=== PATIENT | male | born 1980 | race African-American/Black ===

== ENCOUNTER 2021-02-10 09:01 | Emergency (ER) | payer SELFPAY ==
[2021-02-10 10:22] LABS: Absolute Lymphocytes (CBC) 1.3 K/uL (0.7-4.9); Basophils % 0.5 % (0-1.3); Hematocrit 44.7 % (39.6-49.0); Lymphocytes % 8.5 % (15.3-44.8); MPV 9.1 fL (7.6-11.3); RBC Red Blood Cell Count 5.07 M/uL (4.33-5.43)
--- NOTE | 2021-02-10 10:33 | RAD REPORT ---
EXAM DESCRIPTION: US - Abdomen Exam Limited - 02/10/2021 10:11 am CLINICAL HISTORY: ABD PAIN COMPARISON: No comparisons FINDINGS: The gallbladder demonstrates no gallstones. No pericholecystic fluid or gallbladder wall t hickening. The common bile duct is not dilated. The liver demonstrates no findings of intrahepatic biliary dilatation. IMPRESSION: Unremarkable examination.
--- NOTE | 2021-02-10 10:33 | RAD REPORT ---
EXAM DESCRIPTION: CTAbdomen Pelvis W Contrast - 02/10/2021 10:20 am CLINICAL HISTORY: Abdominal pain. ABD PAIN COMPARISON: No comparisons TECHNIQUE: Biphasic CT imaging of the abdomen and pelvis was performed with 100 ml non-ionic IV cont rast. All CT scans are performed using dose optimization technique as appropriate and may include automated exposure control or mA/KV adjustment according to patient size. FINDINGS: The lung bases are clear. The liver, spleen, pancreas, adrenal glands and kidneys are within normal limits. No bowel obstruction, free air, free fluid or abscess. The appendix is normal. No evidence of signi ficant lymphadenopathy. No suspicious bony findings. IMPRESSION: No acute intra-abdominal or pelvic finding.
[2021-02-10 10:39] LABS: ALT/SGPT 59 U/L (12-78); AST/SGOT 33 U/L (15-37); Albumin 3.8 g/dL (3.4-5.0); Alkaline Phosphatase 73 U/L (45-117); BUN Blood Urea Nitrogen 16 mg/dL (7-18); Bicarbonate 27 mmol/L (21-32); Bilirubin Direct < 0.1 mg/dL (0-0.2); Bilirubin Total 0.2 mg/dL (0.2-1.0); Glucose Level 93 mg/dL (74-106); Lipase 77 U/L (73-393); Potassium 3.8 mmol/L (3.5-5.1); Protein, Total 7.2 g/dL (6.4-8.2); Sodium Level 144 mmol/L (136-145)
--- NOTE | 2021-02-10 11:16 | ER ---
Nurse's Notes [facility] Name: Felicitas Alcala Age: 40 yrs Sex: Male : 1980 Arrival Date: 02/10/2021 Time: 09:06 Bed 7 Private MD: Diagnosis: Generalized abdominal pain Presentation: 02/10 09:06 Chief complaint: EMS states: Sudden onset severe abdominal pain and nausea followed by hb vomit x 2. On scene pt was diaphoretic, Hr SBP 105, HR 40s and irregular. 20 LFA. Pt reports he test COVID positive but was asymptomatic, just came off 16 day quarantine. Coronavirus screen: At this time, the client does not indicate any symptoms associated with coronavirus-19. Ebola Screen: No symptoms or risks identified at this time. Initial Sepsis Screen: Does the patient meet any 2 criteria? No. Patient's initial sepsis screen is negative. Does the patient have a suspected source of infection? No. Patient's initial sepsis screen is negative. Risk Assessment: Do you want to hurt yourself or someone else? Patient reports no desire to harm self or others. Onset of symptoms was February 10, 2021. 09:06 Method Of Arrival: EMS: [facility] hb 09:06 Acuity: FRANCESCA 3 hb Triage Assessment: 09:10 General: Appears in no apparent distress. Behavior is calm, cooperative. Pain: Pain hb currently is 7 out of 10 on a pain scale. EENT: No signs and/or symptoms were reported regarding the EENT system. Neuro: Level of Consciousness is awake, alert, obeys commands, Oriented to person, place, time, situation. Cardiovascular: Patient's skin is warm and dry. Rhythm is regular. Respiratory: Respiratory effort is even, unlabored, Respiratory pattern is regular, symmetrical. GI: Reports lower abdominal pain, upper abdominal pain, nausea, vomiting. : No signs and/or symptoms were reported regarding the genitourinary system. Derm: Skin is pink, warm \T\ dry. Musculoskeletal: No signs and/or symptoms reported regarding the musculoskeletal system. Historical: - Allergies: 09:10 No Known Allergies; hb - Home Meds: 09:10 None [Active]; hb - PMHx: 09:10 None; hb - PSHx: 09:10 None; hb - Immunization history:: Adult Immunizations up to date. - Social history:: Smoking status: Patient reports the use of cigarette tobacco products, denies chronic smoking, but will smoke occasionally. Screenin:11 Abuse screen: Denies threats or abuse. Denies injuries from another. Nutritional hb screening: No deficits noted. Tuberculosis screening: No symptoms or risk factors identified. Fall Risk None identified. Assessment: 09:11 General: see triage assessment . Pain: Pain began Is. hb 10:30 Reassessment: Patient appears in no apparent distress at this time. Patient and/or hb family updated on plan of care and expected duration. Pain level reassessed. Patient is alert, oriented x 3, equal unlabored respirations, skin warm/dry/pink. 11:30 Reassessment: Patient appears in no apparent distress at this time. Patient and/or hb family updated on plan of care and expected duration. Pain level reassessed. Patient is alert, oriented x 3, equal unlabored respirations, skin warm/dry/pink. Patient states feeling better. Patient states symptoms have improved. Vital Signs: 09:06 BP 121 / 73; Pulse 56; Resp 16; Temp 97.9; Pulse Ox 100% on R/A; Weight 120.2 kg; hb Height 6 ft. 2 in. (187.96 cm); Pain 7/10; 10:30 BP 120 / 74; Pulse 72; Resp 16; Pulse Ox 100% ; sv 11:15 BP 132 / 84; Pulse 70; Resp 15; Pulse Ox 99% on R/A; hb 09:06 Body Mass Index 34.02 (120.20 kg, 187.96 cm) hb ED Course: 09:06 Patient arrived in ED. hb 09:10 Triage completed. hb 09:10 Arm band placed on. hb 09:11 Reed Welsh MD is Attending Physician. maritza 09:11 Patient has correct armband on for positive identification. Bed in low position. Call light in reach. 09:32 Lit Connor PA is PHCP. jmm 10:11 US Abdomen Limited In Process Unspecified. EDMS 10:20 CT Abd/Pelvis - IV Contrast Only In Process Unspecified. EDMS 11:30 Alma Wong, RN is Primary Nurse. hb 11:31 No provider procedures requiring assistance completed. IV discontinued, intact, hb bleeding controlled, No redness/swelling at site. Administered Medications: No medications were administered Outcome: 11:15 Discharge ordered by MD. olsen 11:31 Discharged to home ambulatory. hb 11:31 Condition: stable 11:31 Discharge instructions given to patient, Instructed on discharge instructions, follow up and referral plans. medication usage, Demonstrated understanding of instructions, follow-up care, medications, Prescriptions given X 3. 11:39 Patient left the ED. hb Signatures: Dispatcher [employer] EDAnna Sandoval, RN RN Reed Shah MD MD cha Mickail, Joel, PA PA jmm Baxter, Heather, RN RN hb
--- NOTE | 2021-02-10 11:16 | EDPHYS ---
Physician Documentation [facility] Name: Felicitas Alcala Age: 40 yrs Sex: Male : 1980 Arrival Date: 02/10/2021 Time: 09:06 Bed 7 Private MD: ED Physician Reed Welsh HPI: 02/10 09:11 This 40 yrs old Male presents to ER via EMS with complaints of Abdominal Pain. [facility] 09:11 The patient presents with abdominal pain. Onset: The symptoms/episode began/occurred jmm acutely, 2 hour(s) ago. The symptoms do not radiate. Associated signs and symptoms: Pertinent positives: vomiting. The symptoms are described as achy, sharp. Modifying factors: The symptoms are alleviated by nothing, the symptoms are aggravated by nothing. This is a 40 year old male with no known chronic medical conditions that presents to the ED with complaints of abdominal pain in all four of his quadrants. Began periumbilical and spread diffusely acute. Patient had 2 episodes of vomiting. Denies diarrhea. . Historical: - Allergies: 09:10 No Known Allergies; hb - Home Meds: 09:10 None [Active]; hb - PMHx: 09:10 None; hb - PSHx: 09:10 None; hb - Immunization history:: Adult Immunizations up to date. - Social history:: Smoking status: Patient reports the use of cigarette tobacco products, denies chronic smoking, but will smoke occasionally. ROS: 09:11 Constitutional: Negative for fever, chills, and weight loss, Cardiovascular: Negative jmm for chest pain, palpitations, and edema, Respiratory: Negative for shortness of breath, cough, wheezing, and pleuritic chest pain. 09:11 Abdomen/GI: Positive for abdominal pain, vomiting. 09:11 All other systems are negative. Exam: 09:11 Constitutional: This is a well developed, well nourished patient who is awake, alert, jmm and in no acute distress. Head/Face: atraumatic. Eyes: EOMI, no conjunctival erythema appreciated ENT: Moist Mucus Membranes Neck: Trachea midline, Supple Chest/axilla: Normal chest wall appearance and motion. Cardiovascular: Regular rate and rhythm. No edema appreciated Respiratory: Normal respirations, no respiratory distress appreciated Abdomen/GI: Non distended, soft Back: Normal ROM Skin: General appearance color normal MS/ Extremity: Moves all extremities, no obvious deformities appreciated, no edema noted to the lower extremities Neuro: Awake and alert, normal gait Psych: Behavior is normal, Mood is normal, Patient is cooperative and pleasant Vital Signs: 09:06 BP 121 / 73; Pulse 56; Resp 16; Temp 97.9; Pulse Ox 100% on R/A; Weight 120.2 kg; hb Height 6 ft. 2 in. (187.96 cm); Pain 7/10; 10:30 BP 120 / 74; Pulse 72; Resp 16; Pulse Ox 100% ; sv 11:15 BP 132 / 84; Pulse 70; Resp 15; Pulse Ox 99% on R/A; hb 09:06 Body Mass Index 34.02 (120.20 kg, 187.96 cm) hb MDM: 09:11 Patient medically screened. maritza 11:14 Data reviewed: vital signs, nurses notes. Counseling: I had a detailed discussion with raúl the patient and/or guardian regarding: the historical points, exam findings, and any diagnostic results supporting the discharge/admit diagnosis, lab results, radiology results, the need for outpatient follow up, to return to the emergency department if symptoms worsen or persist or if there are any questions or concerns that arise at home. ED course: Patient is alert and non toxic in appearance in the ED. No signs of resp distress. Abdomen soft. CT negative for an acute process. Patient given early appendicitis return precautions. Patient understood and agrees with the plan of care. . 02/10 09:37 Order name: Basic Metabolic Panel; Complete Time: 10:48 [facility] 02/10 09:37 Order name: CBC with Diff; Complete Time: 10:24 [facility] 02/10 09:37 Order name: Hepatic Function; Complete Time: 10:48 [facility] 02/10 09:37 Order name: Lipase; Complete Time: 10:48 [facility] 02/10 09:39 Order name: Troponin (emerg Dept Use Only); Complete Time: 10:48 [facility] 02/10 10:10 Order name: CREATININE WHOLE BLOOD; Complete Time: 10:15 [facility] 02/10 09:37 Order name: IV Saline Lock; Complete Time: 10:33 [facility] 02/10 09:37 Order name: Labs collected and sent; Complete Time: 10:33 [facility] 02/10 09:37 Order name: CT Abd/Pelvis - IV Contrast Only; Complete Time: 10:34 [facility] 02/10 09:37 Order name: US Abdomen Limited; Complete Time: 10:34 [facility] 02/10 09:39 Order name: EKG - Nurse/Tech; Complete Time: 10:43 [facility] Administered Medications: No medications were administered Disposition: 02/11 07:14 Co-signature as Attending Physician, Reed Welsh MD I agree with the assessment and maritza plan of care. Disposition: 02/10/21 11:15 Discharged to Home. Impression: Generalized abdominal pain. - Condition is Stable. - Discharge Instructions: Abdominal Pain, Adult. - Prescriptions for Bentyl 20 mg Oral Tablet - take 1 tablet by ORAL route every 6 hours As needed; 20 tablet. Carafate 1 gram Oral Tablet - take 1 tablet by ORAL route 4 times per day take on an empty stomach, beginning on waking and last dose at bedtime; 100 tablet. Pepcid 20 mg Oral Tablet - take 1 tablet by ORAL route once daily; 20 tablet. - Medication Reconciliation Form, Thank You Letter, Antibiotic Education, Prescription Opioid Use form. - Follow up: Private Physician; When: 2 - 3 days; Reason: Recheck today's complaints, Continuance of care, Re-evaluation by your physician. Signatures: Dispatcher [employer] EDReed Cool MD MD cha Mickail, Joel, PA PA Alma Reid, FRANDY RN Corrections: (The following items were deleted from the chart) 02/10 11:39 11:15 02/10/2021 11:15 Discharged to Home. Impression: Generalized abdominal pain. hb Condition is Stable. Forms are Medication Reconciliation Form, Thank You Letter, Antibiotic Education, Prescription Opioid Use. Follow up: Private Physician; When: 2 - 3 days; Reason: Recheck today's complaints, Continuance of care, Re-evaluation by your physician. [facility]
[2021-02-10 11:45] VITALS: TEMP 97.9
[2021-02-10 11:47] VITALS: BP 132/84; O2SAT 99
== END 2021-02-10 11:39 | disposition home or self-care (01) ==
LOC: ER 09:01
DX: R10.84 Generalized abdominal pain (principal); F17.210 Nicotine dependence, cigarettes, uncomplicated
CPT/HCPCS: 36415; 74177; 76705; 80048; 80076; 82565; 83690; 84484; 85025; 93005; 99283; Q9967